=== PATIENT | female | born 1960 | race Asian ===

== ENCOUNTER → 2025-06-17 | Day surgery (SDC) | payer OTHER ==
[~2025-06-17] MED LIST: ALENDRONATE SOD70 MG PO; CALCIUM ACETAT667 MG PO; CYCLOBENZAPRINE10 MG PO; D3-5000125 MCG; FAMOTIDINE20 MG PO; FENOFIBRATE145 MG PO; FENTANYL CITRATE/PF 100MCG/2 ML INJ ONE; LIDOCAINE HCL 2% LOCAL INJ 5 ML SDV VIAL INJ ONE; METOPROLOL SUCC25 MG PO; NAPROXEN250 MG PO; ONDANSETRON HCL INJ 2MG/ML 2ML 2 MG/ML VIAL ONE; PROPOFOL IV EMULSION 50 ML IV ONE; TRICOR48 MG PO
[2025-06-17] MEDS: LACTATED RINGER'S 1,000 ML ONE (06:04)
[2025-06-17 09:20] VITALS: BP 120/81; PULSE 50; RESP 15; TEMP 97.7; O2SAT 95
== END | disposition home or self-care (01) ==
LOC: MERGE 05:51 → OR 05:51
PROVIDERS: ATTEND Internal Medicine Gastroenterology
DX: K25.9 Gastric ulcer, unspecified as acute or chronic, without hemorrhage or perforation (principal); K26.9 Duodenal ulcer, unspecified as acute or chronic, without hemorrhage or perforation; K44.9 Diaphragmatic hernia without obstruction or gangrene; I10 Essential (primary) hypertension; Z71.89 Other specified counseling; E78.5 Hyperlipidemia, unspecified; M81.0 Age-related osteoporosis without current pathological fracture; Z01.810 Encounter for preprocedural cardiovascular examination; Z79.1 Long term (current) use of non-steroidal anti-inflammatories (NSAID); Z79.899 Other long term (current) drug therapy; Z68.25 Body mass index [BMI] 25.0-25.9, adult
CPT/HCPCS: 43235; 93005; J2003; J2405; J2470; J2704; J3010; J7121